=== PATIENT | male | born 1995 | race African-American/Black ===

== ENCOUNTER 2021-10-03 14:23 | Emergency (ER) | payer MEDICAID ==
[~2021-10-03] VITALS: Ht 170.2 cm; Wt 136.0 kg
[2021-10-03] MEDS ORDERED: TETANUS, DIPHTHERIA, PERTUSSIS VAC/PF 0.5ML (>10YR OLD) IM ONE (17:45)
[2021-10-03] MEDS ORDERED: BACITRACIN ZINC OINT UDPKT TOP ONE (17:45)
[2021-10-03] MEDS ORDERED: IBUPROFEN 600MG TABLET PO ONE (17:45)
[2021-10-03] MEDS ORDERED: LIDOCAINE HCL/PF 1% 10 MG/ML 5ML VIAL INFIL ONE (17:45)
[2021-10-03] MEDS ORDERED: CEPH500T PO (18:11)
[2021-10-03] MEDS ORDERED: SULF1TAB48 PO (18:11)
[2021-10-03 18:44] VITALS: BP 108/50
== END 2021-10-03 18:44 | disposition home or self-care (01) ==
LOC: ER 14:23
DX: L02.411 Cutaneous abscess of right axilla (principal)
CPT/HCPCS: 90471; 90715; 99283; J3490